=== PATIENT | female | born 1990 | race Caucasian/White ===

== ENCOUNTER → 2024-01-06 08:28 | Outpatient (CLI) | payer OTHER, SELFPAY ==
--- NOTE | 2024-01-06 08:31 | DI.US.S_ITS ---
PROCEDURE: US PELVIC COMPLETE INDICATIONS: Pelvic and perineal pain TECHNIQUE: Real-time scanning was performed of the pelvic organs, with image documentation. Additional endovaginal scanning was necessary due to incomplete visualization of the adnexal and endometrial structures by transabdominal scanning. COMPARISON: None. FINDINGS: Uterus: Uterus is anteverted and normal in size at 9.6 x 4.1 x 4.8 cm. The myometrium is homogeneous. The endometrium measures 3 mm combined thickness. No IUD was demonstrated. Ovaries: Ovaries could not be visualized due to bowel gas. Other: No pathologic free abdominal or pelvic fluid. IMPRESSION: No abnormalities demonstrated in the pelvis. Ovaries could not be imaged due to overlying bowel gas. An IUD was not demonstrated on this study. Dictated by: Stephen Waldrop M.D. on 01/06/2024 at 12:37 Approved by: Stephen Waldrop M.D. on 01/06/2024 at 12:46
== END ==
PROVIDERS: PCP Internal Medicine; Referring Provider Internal Medicine; Visit Provider Internal Medicine
DX: R10.2 Pelvic and perineal pain (principal)
CPT/HCPCS: 76856